=== PATIENT | male | born 1990 | race Caucasian/White ===

== ENCOUNTER 2024-07-07 13:04 | Emergency (ER) | payer OTHER ==
[~2024-07-07] VITALS: Ht 185.4 cm; Wt 84.4 kg
[2024-07-07] MEDS ORDERED: HYDROMORPHONE 2 MG/1 ML DISP.SYRIN ONE (13:54)
[2024-07-07] MEDS ORDERED: PROCHLORPERAZINE EDISYLATE 10 MG/2 ML VIAL ONE (13:54)
[2024-07-07] MEDS: HYDROMORPHONE 1 MG/1 ML DISP.SYRIN IV ONE ×2 (14:03→15:03)
[2024-07-07] MEDS: IV NS 1000 ML 1,000 ML IV ONE (14:03)
[2024-07-07] MEDS: PROCHLORPERAZINE EDISYLATE 10 MG/2 ML VIAL IV ONE (14:03)
[2024-07-07] MEDS ORDERED: LORAZEPAM 2 MG/1 ML VIAL ONE (14:29)
[2024-07-07] MEDS: LORAZEPAM 2 MG/1 ML VIAL IV ONE (14:31)
[2024-07-07] MEDS ORDERED: HYDROMORPHONE 1 MG/1 ML DISP.SYRIN ONE (14:56)
[2024-07-07] MEDS ORDERED: diphenhydrAMINE 50 MG/1 ML VIAL ONE (14:56)
[2024-07-07] MEDS: diphenhydrAMINE 50 MG/1 ML VIAL IV ONE (15:02)
[2024-07-07 15:03] VITALS: O2SAT 99
[2024-07-07] MEDS ORDERED: PROC10TA29 PO (15:04)
[2024-07-07] MEDS ORDERED: HYDR-3980 PO (15:04)
== END 2024-07-07 15:12 | disposition home or self-care (01) ==
LOC: ER 13:14
DX: J10.1 Influenza due to other identified influenza virus with other respiratory manifestations (principal)
CPT/HCPCS: 99284; 96374; 96375; 96361; 96376; J1171 ×2; J1200; J2060; J0780; J7040; A4606; A4663